=== PATIENT | male | born 2005 | race African-American/Black ===

== ENCOUNTER 2025-08-09 17:42 | Inpatient (IN) | payer MEDICAID ==
[~2025-08-09] VITALS: Ht 165.1 cm; Wt 44.0 kg
[2025-08-09 18:23] LABS: COVID AG,FIA SOURCE NPH
[2025-08-09 18:44] LABS: SARS-COV2 (COVID) ANTIGEN,FIA Negative (Negative)
[2025-08-09] MEDS ORDERED: ZOLPIDEM TARTRATE 10 MG TABLET PO PRN (20:00)
[2025-08-10 14:10] VITALS: RESP 18
[2025-08-10 21:02] VITALS: RESP 18
[2025-08-11 09:21] VITALS: RESP 16
[2025-08-11 21:28] VITALS: RESP 18
[2025-08-12 12:50] VITALS: RESP 17
[2025-08-12] MEDS ORDERED: ACETAMINOPHEN 325 MG TABLET PO PRN (23:15)
[2025-08-12] MEDS ORDERED: IBUPROFEN 600 MG TABLET PO PRN (23:15)
[2025-08-12] MEDS ORDERED: BENZOCAINE/MENTHOL [CEPACOL] LOZENGE PO PRN (23:15)
[2025-08-12] MEDS ORDERED: MAGNESIUM HYDROXIDE SUSPENSION 30 ML UDCUP PO PRN (23:15)
[2025-08-12] MEDS ORDERED: MAG HYDROX/ALUMINUM HYD/SIMETH ES 30 ML SUSPENSION UDCUP PO PRN (23:15)
[2025-08-12] MEDS ORDERED: ALBUTEROL SULFATE HFA 90 MCG/PUFF 8 GM INHALER IH PRN (23:15)
[2025-08-12] MEDS ORDERED: LOPERAMIDE HCL 2 MG CAPSULE PO PRN (23:15)
[2025-08-12] MEDS ORDERED: DOCUSATE SODIUM 100 MG CAPSULE PO PRN (23:15)
[2025-08-12] MEDS ORDERED: OMEPRAZOLE 20 MG CAPSULE PO PRN (23:15)
[2025-08-12] MEDS ORDERED: ONDANSETRON 4 MG TABLET PO PRN (23:15)
[2025-08-12] MEDS ORDERED: BACITRACIN 28 GM OINTMENT TP PRN (23:15)
[2025-08-12] MEDS ORDERED: PETROLATUM,WHITE 28 GM JELLY TP PRN (23:15)
[2025-08-13 09:24] VITALS: BP 128/69; PULSE 67; RESP 17; TEMP 98.6; O2SAT 100
[2025-08-13] MEDS: NICOTINE POLACRILEX 4 MG LOZENGE PO PRN (10:42)
[2025-08-13 20:58] VITALS: RESP 18
[2025-08-14 10:54] VITALS: BP 124/86; PULSE 99; RESP 18; TEMP 98.6
[2025-08-14 20:38] VITALS: BP 90/60; PULSE 82; RESP 18; TEMP 97.8; O2SAT 82
[2025-08-15 10:42] VITALS: BP 121/99; PULSE 101; RESP 17; TEMP 98.1; O2SAT 100
[2025-08-15] MEDS ORDERED: OLAN5TAB52 PO (15:43)
== END 2025-08-15 18:00 | disposition home or self-care (01) | DRG 750 ==
LOC: EMS 17:42 → EDBEDREQSVC 20:08 → 3EC 20:48
PROVIDERS: ADMIT Psychiatry & Neurology Psychiatry; ATTEND Psychiatry & Neurology Psychiatry
PROC: GZHZZZZ Group Psychotherapy (ICD-10-PCS; principal; 2025-08-10)
PROC: GZ52ZZZ Individual Psychotherapy, Cognitive (ICD-10-PCS; 2025-08-10)
DX: F29 Unspecified psychosis not due to a substance or known physiological condition (principal); F41.9 Anxiety disorder, unspecified; Z20.822 Contact with and (suspected) exposure to COVID-19; G47.00 Insomnia, unspecified; Z53.20 Procedure and treatment not carried out because of patient's decision for unspecified reasons; Z65.3 Problems related to other legal circumstances; Z91.199 Patient's noncompliance with other medical treatment and regimen due to unspecified reason; Z91.51 Personal history of suicidal behavior
CPT/HCPCS: 99285; Z7502; Z7610

== ENCOUNTER 2025-09-04 20:00 | Inpatient (IN) | payer MEDICAID, OTHER ==
[~2025-09-04] VITALS: Ht 172.7 cm; Wt 49.0 kg
[~2025-09-04 20:00] MED LIST: OLAN5TAB52 PO
[2025-09-04 21:39] LABS: COVID AG,FIA SOURCE NASAL SWAB
[2025-09-04 21:51] VITALS: O2SAT 100
[2025-09-04 22:04] LABS: SARS-COV2 (COVID) ANTIGEN,FIA Negative (Negative)
[2025-09-05] MEDS: ZOLPIDEM TARTRATE 10 MG TABLET PO PRN (02:03)
[2025-09-05 02:13] VITALS: BP 123/92; PULSE 69; RESP 18; TEMP 98.5; O2SAT 100
[2025-09-05] MEDS ORDERED: INFLUENZA VIRUS VACCINE TVS (6MO+) 2025-26/PF 45 MCG/0.5 ML SYRINGE IM. ONE (04:30)
[2025-09-05] MEDS ORDERED: BACITRACIN 28 GM OINTMENT TP PRN (09:00)
[2025-09-05] MEDS ORDERED: ALBUTEROL SULFATE HFA 90 MCG/PUFF 8 GM INHALER IH PRN (09:00)
[2025-09-05] MEDS ORDERED: OMEPRAZOLE 20 MG CAPSULE PO PRN (09:00)
[2025-09-05] MEDS ORDERED: DOCUSATE SODIUM 100 MG CAPSULE PO PRN (09:00)
[2025-09-05] MEDS ORDERED: IBUPROFEN 600 MG TABLET PO PRN (09:00)
[2025-09-05] MEDS ORDERED: MAG HYDROX/ALUMINUM HYD/SIMETH ES 30 ML SUSPENSION UDCUP PO PRN (09:00)
[2025-09-05] MEDS ORDERED: PETROLATUM,WHITE 28 GM JELLY TP PRN (09:00)
[2025-09-05] MEDS ORDERED: LOPERAMIDE HCL 2 MG CAPSULE PO PRN (09:00)
[2025-09-05] MEDS ORDERED: ONDANSETRON 4 MG TABLET PO PRN (09:00)
[2025-09-05] MEDS ORDERED: BENZOCAINE/MENTHOL [CEPACOL] LOZENGE PO PRN (09:00)
[2025-09-05] MEDS ORDERED: MAGNESIUM HYDROXIDE SUSPENSION 30 ML UDCUP PO PRN (09:00)
[2025-09-05 20:16] VITALS: BP 129/83; PULSE 84; RESP 18; TEMP 97.8; O2SAT 100
[2025-09-05 23:51] VITALS: BP 126/72; PULSE 113; RESP 18; O2SAT 100
[2025-09-05] MEDS: NICOTINE POLACRILEX 4 MG LOZENGE PO PRN (23:56)
[2025-09-06 08:44] VITALS: BP 120/67; PULSE 79; RESP 18; TEMP 99; O2SAT 100
[2025-09-06 20:02] VITALS: BP 92/52; PULSE 65; RESP 16; TEMP 98.4; O2SAT 100
[2025-09-07 08:04] VITALS: BP 121/82; PULSE 81; RESP 18; TEMP 97.8; O2SAT 95
[2025-09-07 20:46] VITALS: BP 119/75; PULSE 80; RESP 17; TEMP 98.2; O2SAT 100
[2025-09-08 09:01] VITALS: BP 116/70; PULSE 62; RESP 16; TEMP 98.6; O2SAT 100
[2025-09-08 20:24] VITALS: BP 99/61; PULSE 68; RESP 18; TEMP 98; O2SAT 98
[2025-09-09 08:25] VITALS: BP 126/87; PULSE 72; RESP 18; TEMP 98.2; O2SAT 100
[2025-09-09 20:15] VITALS: BP 131/82; PULSE 86; RESP 17; TEMP 97.6; O2SAT 99
[2025-09-10 08:24] VITALS: BP 109/84; PULSE 99; RESP 17; TEMP 99; O2SAT 99
[2025-09-10] MEDS ORDERED: LORazepam 2 MG/ML VIAL ONE (17:05)
[2025-09-10] MEDS: LORazepam 2 MG/ML VIAL IM ONE (17:51)
[2025-09-10 20:30] VITALS: BP 116/78; PULSE 90; RESP 18; TEMP 98.6; O2SAT 99
[2025-09-11 02:49] VITALS: BP 98/68; PULSE 78; RESP 16; TEMP 97.5; O2SAT 99
[2025-09-11 08:26] VITALS: RESP 16
[2025-09-12 08:14] VITALS: RESP 15
[2025-09-12 20:09] VITALS: BP 128/86; PULSE 86; RESP 17; TEMP 98.4; O2SAT 99
[2025-09-13 08:08] VITALS: RESP 18
[2025-09-13 20:27] VITALS: BP 134/85; PULSE 64; RESP 18; TEMP 98.5; O2SAT 98
[2025-09-14 08:15] VITALS: BP 136/79; PULSE 70; RESP 18; TEMP 98; O2SAT 97
[2025-09-14 20:19] VITALS: BP 123/73; PULSE 80; RESP 17; TEMP 97.8; O2SAT 97
[2025-09-15 08:07] VITALS: BP 109/76; PULSE 81; RESP 18; TEMP 98.1; O2SAT 98
[2025-09-15 20:15] VITALS: BP 105/67; PULSE 82; RESP 18; TEMP 98.7; O2SAT 99
[2025-09-16 08:10] VITALS: BP 113/88; PULSE 63; RESP 17; TEMP 98.2; O2SAT 99
[2025-09-16 20:16] VITALS: BP 122/86; PULSE 82; RESP 18; TEMP 98
[2025-09-17 08:09] VITALS: BP 123/80; PULSE 84; RESP 17; TEMP 98.7; O2SAT 99
[2025-09-17 20:41] VITALS: BP 120/80; PULSE 69; RESP 17; TEMP 98.8; O2SAT 100
[2025-09-18 08:08] VITALS: RESP 15
[2025-09-18 20:44] VITALS: RESP 18
[2025-09-19 08:31] VITALS: BP 107/62; PULSE 81; RESP 17; TEMP 98.1; O2SAT 99
[2025-09-19] MEDS ORDERED: LORazepam 2 MG/ML VIAL ONE (14:12)
[2025-09-19] MEDS: LORazepam 2 MG/ML VIAL IM ONE (14:31)
[2025-09-19 23:15] VITALS: BP 106/58; PULSE 78; RESP 18; TEMP 97.8; O2SAT 98
[2025-09-20 14:23] VITALS: RESP 16
[2025-09-20 20:30] VITALS: RESP 18
[2025-09-21 09:43] VITALS: RESP 18
[2025-09-21 11:49] VITALS: RESP 18
[2025-09-21] MEDS: ACETAMINOPHEN 325 MG TABLET PO PRN (11:49)
[2025-09-21] MEDS ORDERED: RISP3TAB77 PO (17:33)
== END 2025-09-21 17:55 | disposition home or self-care (01) | DRG 750 ==
LOC: EMS 20:00 → B2S 09-05 00:05 → B3A 09-10 16:30
PROVIDERS: ADMIT Psychiatry & Neurology Psychiatry; ATTEND Psychiatry & Neurology Psychiatry
PROC: GZHZZZZ Group Psychotherapy (ICD-10-PCS; principal; 2025-09-05)
PROC: GZ52ZZZ Individual Psychotherapy, Cognitive (ICD-10-PCS; 2025-09-05)
DX: F20.0 Paranoid schizophrenia (principal); F41.9 Anxiety disorder, unspecified; G47.00 Insomnia, unspecified; Z20.822 Contact with and (suspected) exposure to COVID-19; Z72.0 Tobacco use; Z91.51 Personal history of suicidal behavior
CPT/HCPCS: 87081; J1200; J2060; J3230

== ENCOUNTER 2025-09-10 20:02 | Emergency (ER) | payer MEDICAID, OTHER ==
[~2025-09-10] VITALS: Ht 175.3 cm; Wt 63.6 kg
[2025-09-10 20:11] VITALS: BP 99/48; PULSE 92; RESP 12; TEMP 98.2; O2SAT 99
== END 2025-09-11 01:54 | disposition home or self-care (01) ==
LOC: EMS 20:02
DX: S19.9XXA Unspecified injury of neck, initial encounter (principal); Z79.899 Other long term (current) drug therapy; Y04.0XXA Assault by unarmed brawl or fight, initial encounter; Y93.89 Activity, other specified; Y92.89 Other specified places as the place of occurrence of the external cause; Y99.8 Other external cause status
CPT/HCPCS: 70450; 70490; 99284

== ENCOUNTER 2025-09-19 17:24 | Emergency (ER) | payer OTHER ==
[~2025-09-19] VITALS: Ht 172.7 cm; Wt 53.7 kg
[2025-09-19 17:30] VITALS: TEMP 98.1
[2025-09-19 22:14] VITALS: BP 108/53; PULSE 88; RESP 14; O2SAT 97
== END 2025-09-19 22:19 | disposition home or self-care (01) ==
LOC: EMS 17:24
DX: S00.83XA Contusion of other part of head, initial encounter (principal); F20.9 Schizophrenia, unspecified; F41.9 Anxiety disorder, unspecified; Z79.899 Other long term (current) drug therapy; Y04.0XXA Assault by unarmed brawl or fight, initial encounter; Y93.89 Activity, other specified; Y92.89 Other specified places as the place of occurrence of the external cause; Y99.8 Other external cause status
CPT/HCPCS: 99283; Z7502